=== PATIENT | male | born 1990 ===

== ENCOUNTER 2023-01-12 14:53 | Emergency (ER) | payer SELFPAY ==
[2023-01-12] MEDS ORDERED: IV NORMAL SALINE 1000 ML BAG IV ONE (15:15)
== END 2023-01-12 15:19 | disposition left against medical advice (07) ==
LOC: ER 14:53
DX: Z53.21 Procedure and treatment not carried out due to patient leaving prior to being seen by health care provider (principal)
CPT/HCPCS: 93005